=== PATIENT | female | born 1985 | race Two or more races ===

== ENCOUNTER 2021-10-19 12:29 | Inpatient (IN) | payer OTHER ==
[~2021-10-19] VITALS: Ht 170.2 cm; Wt 73.9 kg
[2021-10-19] MEDS ORDERED: PRENATABS FA T1 EACH (12:48)
[2021-10-19] MEDS ORDERED: FOLIC ACID0.8 M1 (12:48)
--- NOTE | 2021-10-19 12:49 | NUR ---
PACIENTE EMBARAZADA DE 7 SEMANAS REFIERE DOLOR EN EL AREA PELVICA IZQUIERDA DE SATHYA SEMANA DE EVOLUCION, SIN SANGRADO, REFIERE SRINIVASAN URGENCIA AL ORINAR.
[2021-10-20] MEDS ORDERED: NAPR500T14 PO (13:07)
== END 2021-10-20 14:14 | disposition home or self-care (01) | DRG 819 ==
LOC: ER 12:29 → SURG 20:21 → SURH 10-20 00:13
PROVIDERS: ADMIT Obstetrics & Gynecology; ATTEND Obstetrics & Gynecology
PROC: 0UB64ZZ Excision of Left Fallopian Tube, Percutaneous Endoscopic Approach (ICD-10-PCS; 2021-10-19)
PROC: 0UDB8ZZ Extraction of Endometrium, Via Natural or Artificial Opening Endoscopic (ICD-10-PCS; 2021-10-19)
PROC: BU4CZZZ Ultrasonography of Uterus and Ovaries (ICD-10-PCS; 2021-10-19)
PROC: 10D24ZZ Extraction of Products of Conception, Ectopic, Percutaneous Endoscopic Approach (ICD-10-PCS; principal; 2021-10-19 20:30)
DX: O00.102 Left tubal pregnancy without intrauterine pregnancy (principal); N80.2 Endometriosis of fallopian tube; Z3A.01 Less than 8 weeks gestation of pregnancy; Z20.822 Contact with and (suspected) exposure to COVID-19